=== PATIENT | female | born 1990 | race Two or more races ===

== ENCOUNTER 2018-03-26 08:35 | Outpatient (CLI) | payer OTHER | END 2018-03-26 08:47 | disposition home or self-care, planned readmission (81) | LOC: SONOGRAMA 08:35 | DX: N88.8 Other specified noninflammatory disorders of cervix uteri (principal) ==

== ENCOUNTER → 2018-12-22 | Outpatient (CLI) | payer OTHER | END | disposition home or self-care (01) | LOC: RAD 11:29 | DX: K59.09 Other constipation (principal); Z86.010 Personal history of colon polyps ==

== ENCOUNTER 2021-08-01 14:50 | Outpatient (CLI) | payer OTHER | END 2021-08-01 15:03 | disposition home or self-care (01) | LOC: RAD 14:50 | PROVIDERS: ATTEND Internal Medicine | DX: G93.3 Postviral and related fatigue syndromes (principal) ==

== ENCOUNTER 2021-08-10 10:47 | Outpatient (CLI) | payer OTHER | END 2021-08-10 11:00 | disposition home or self-care (01) | LOC: RAD 10:47 | PROVIDERS: ATTEND Internal Medicine | DX: M25.569 Pain in unspecified knee (principal); M54.50 Low back pain, unspecified ==

== ENCOUNTER 2022-01-18 12:15 | Outpatient (CLI) | payer OTHER | END 2022-01-18 12:41 | disposition home or self-care (01) | LOC: TOM 12:15 | PROVIDERS: ATTEND Internal Medicine | DX: I26.99 Other pulmonary embolism without acute cor pulmonale (principal) | CPT/HCPCS: 71275 ==

== ENCOUNTER 2022-01-18 12:34 | Outpatient (CLI) | payer OTHER | END 2022-01-18 12:35 | disposition home or self-care (01) | LOC: LAB 12:34 | PROVIDERS: ATTEND Radiology Diagnostic Radiology | DX: R10.9 Unspecified abdominal pain (principal) ==

== ENCOUNTER 2022-01-24 08:57 | Outpatient (CLI) | payer OTHER | END 2022-01-24 09:03 | disposition home or self-care (01) | LOC: NUCLEAR 08:57 | PROVIDERS: ATTEND Internal Medicine | DX: I26.99 Other pulmonary embolism without acute cor pulmonale (principal); U09.9 Post COVID-19 condition, unspecified ==

== ENCOUNTER 2022-09-06 07:36 | Outpatient (CLI) | payer OTHER | END 2022-09-06 07:46 | disposition home or self-care (01) | LOC: SONOGRAMA 07:36 | PROVIDERS: ATTEND Surgery | DX: K59.02 Outlet dysfunction constipation (principal); R10.11 Right upper quadrant pain; K52.9 Noninfective gastroenteritis and colitis, unspecified ==

== ENCOUNTER → 2022-09-12 | Outpatient (CLI) | payer OTHER | END | disposition home or self-care (01) | LOC: RAD 11:36 | DX: M54.2 Cervicalgia (principal); M54.50 Low back pain, unspecified; M54.6 Pain in thoracic spine ==

== ENCOUNTER 2022-10-25 22:33 | Emergency (ER) | payer OTHER ==
[~2022-10-25] VITALS: Ht 167.6 cm; Wt 45.4 kg
[2022-10-25] MEDS ORDERED: FOLIC ACID20 MG PO (22:58)
[2022-10-25] MEDS ORDERED: MAGNESIUM200 MG PO (22:59)
== END 2022-10-26 00:06 | disposition home or self-care (01) ==
LOC: ER 22:33
DX: M94.0 Chondrocostal junction syndrome [Tietze] (principal)

== ENCOUNTER 2023-02-04 13:59 | Outpatient (CLI) | payer OTHER ==
[~2023-02-04 13:59] MED LIST: FOLIC ACID20 MG PO; MAGNESIUM200 MG PO
== END 2023-02-04 14:15 | disposition home or self-care (01) ==
LOC: TOM 13:59
PROVIDERS: ATTEND Internal Medicine
DX: S32.2XXA Fracture of coccyx, initial encounter for closed fracture (principal)

== ENCOUNTER 2023-02-15 13:29 | Outpatient (CLI) | payer OTHER | END 2023-02-15 13:35 | disposition home or self-care (01) | LOC: NUCLEAR 13:29 | PROVIDERS: ATTEND Internal Medicine | DX: Z13.820 Encounter for screening for osteoporosis (principal) ==

== ENCOUNTER 2023-02-22 13:52 | Outpatient (CLI) | payer OTHER | END 2023-02-22 14:07 | disposition home or self-care (01) | LOC: MRI 13:52 | PROVIDERS: ATTEND Physical Medicine & Rehabilitation | DX: M54.59 Other low back pain (principal); M54.16 Radiculopathy, lumbar region | CPT/HCPCS: 72148 ==

== ENCOUNTER 2023-05-30 10:23 | Outpatient (CLI) | payer OTHER | END 2023-05-30 10:29 | disposition home or self-care (01) | LOC: SONOGRAMA 10:23 | PROVIDERS: ATTEND Obstetrics & Gynecology | DX: N60.19 Diffuse cystic mastopathy of unspecified breast (principal) ==